=== PATIENT | female | born 1960 | race Hispanic/Latino ===

== ENCOUNTER 2019-04-30 20:16 | Emergency (ER) | payer SELFPAY ==
[2019-04-30 21:16] LABS: Protime INR 1.03
[2019-04-30 21:20] LABS: Absolute Lymphocytes (CBC) 2.7 K/uL (0.7-4.9); Basophils % 0.9 % (0-1.3); Hematocrit 37.9 % (36.0-45.0); Lymphocytes % 30.8 % (15.3-44.8); MPV 9.2 fL (7.6-11.3); RBC Red Blood Cell Count 4.09 M/uL (3.86-4.86)
[2019-04-30 21:40] LABS: ALT/SGPT 35 U/L (12-78); AST/SGOT 18 U/L (15-37); Albumin 3.9 g/dL (3.4-5.0); Alkaline Phosphatase 118 U/L (45-117); BUN Blood Urea Nitrogen 11 mg/dL (7-18); Bicarbonate 26 mmol/L (21-32); Bilirubin Direct 0.1 mg/dL (0-0.2); Bilirubin Total 0.3 mg/dL (0.2-1.0); Glucose Level 125 mg/dL (74-106); NT PRO-BNP 267 pg/mL (<125); Potassium 3.5 mmol/L (3.5-5.1); Protein, Total 6.9 g/dL (6.4-8.2); Sodium Level 143 mmol/L (136-145); Troponin (Emerg Dept Use Only) < 0.02 ng/mL (0.0-0.045)
[2019-04-30] MEDS ORDERED: KETOROLAC 30 MG/ML INJ ONE (21:41)
--- NOTE | 2019-04-30 22:07 | ER ---
Nurse's Notes [facility] Name: Rowan Tom Age: 58 yrs Sex: Female : 1960 Arrival Date: 04/30/2019 Time: 20:36 Bed 6 Private MD: Diagnosis: Pain in thoracic spine;Pain in upper right posterior thoracic ;Cough;Bronchitis, not specified as acute or chronic Presentation: 04/30 20:30 Presenting complaint: Patient states: that she has had cough, congestion with green fc sputum, chest pain and shortness of breath x 2 months. Pain is worse with deep breathing. Has been seen at the [facility] x 4, they ran tests including a Ct and could not figure things out so she was told to come to ER. Also has 2 wounds on her scalp that have been there for 2 years and treated but wont go away. Transition of care: patient was not received from another setting of care. Onset of symptoms was February 2019. Risk Assessment: Do you want to hurt yourself or someone else? Patient reports no desire to harm self or others. Initial Sepsis Screen: Does the patient meet any 2 criteria? No. Patient's initial sepsis screen is negative. Does the patient have a suspected source of infection? No. Patient's initial sepsis screen is negative. Care prior to arrival: None. 20:30 Method Of Arrival: Ambulatory 20:30 Acuity: LAMINE 3 Triage Assessment: 21:45 Respiratory: Reports. bb 21:46 General: Appears in no apparent distress. Respiratory: Onset: The symptoms/episode bb began/occurred 2 months ago, the patient reports symptoms have resolved. Historical: - Allergies: 21:01 Levaquin; fc - Home Meds: 21:01 sertraline 25 mg oral tab 1 tab once daily [Active]; fc - PMHx: 21:01 Depression; UTI - Ecoli; fc - PSHx: 21:01 ; fc - Immunization history:: Last tetanus immunization: unknown, Flu vaccine is not up to date. - Social history:: Smoking status: Patient/guardian denies using tobacco, Patient/guardian denies using alcohol, street drugs. - Ebola Screening: : Patient negative for fever greater than or equal to 101.5 degrees Fahrenheit, and additional compatible Ebola Virus Disease symptoms Patient denies exposure to infectious person Patient denies travel to an Ebola-affected area in the 21 days before illness onset. Screenin:30 Abuse screen: Denies threats or abuse. Nutritional screening: No deficits noted. fc Tuberculosis screening: No symptoms or risk factors identified. Fall Risk None identified. Assessment: 20:50 General: Appears in no apparent distress. Behavior is calm, cooperative. Pain: bb Complains of pain in back Pain currently is 5 out of 10 on a pain scale. Neuro: Level of Consciousness is awake, alert, obeys commands, Oriented to person, place, time, situation. Cardiovascular: Heart tones S1 S2 present Capillary refill < 3 seconds Patient's skin is warm and dry. Pulses are all present. Edema is absent. Rhythm is sinus rhythm. Respiratory: Airway is patent Respiratory effort is even, unlabored, Breath sounds are clear bilaterally. GI: No deficits noted. No signs and/or symptoms were reported involving the gastrointestinal system. Derm: Skin is pink, warm \T\ dry. Musculoskeletal: Circulation, motion, and sensation intact. 21:47 Reassessment: Patient and/or family updated on plan of care and expected duration. Pain bb level reassessed. Patient is alert, oriented x 3, equal unlabored respirations, skin warm/dry/pink. pt awaiting diagnostic results, family at bedside. 22:26 Reassessment: Upon discharge pt states she is feeling nauseous Dr Ko notified pt bb medicated see AUG. 22:39 Reassessment: Patient is alert, oriented x 3, equal unlabored respirations, skin bb warm/dry/pink. pt verbalized understanding of and agrees to plan of care discharge instructions given pt ambulated with steady gait to exit accompanied by family. Vital Signs: 20:30 BP 111 / 68; Pulse 68; Resp 20; Temp 99(O); Pulse Ox 99% on R/A; Weight 75.3 kg (R); fc Height 5 ft. 3 in. (160.02 cm) (R); Pain 5/10; 21:17 BP 103 / 64; Pulse 71; Resp 20; Pulse Ox 96% on R/A; bb 21:47 BP 110 / 60; Pulse 60; Resp 14 S; Pulse Ox 96% on R/A; bb 22:35 BP 108 / 62; Pulse 63; Resp 20 S; Temp 98.6(O); Pulse Ox 98% on R/A; bb 20:30 Body Mass Index 29.41 (75.30 kg, 160.02 cm) ED Course: 20:30 Arm band placed on Patient placed in an exam room, on a stretcher. fc 20:30 Patient has correct armband on for positive identification. Placed in gown. Bed in low fc position. Call light in reach. Side rails up X 1. phototypesetting equipment monitor on. Pulse ox on. NIBP on. 20:30 No provider procedures requiring assistance completed. fc 20:36 Patient arrived in ED. cf2 20:47 Luis Ko MD is Attending Physician. kdr 20:50 Warm blanket given. bb 20:59 Triage completed. fc 21:10 XRAY Chest (1 view) In Process Unspecified. EDMS 21:11 Inserted saline lock: 20 gauge in left wrist, using aseptic technique. Blood collected. jb5 21:13 Treasure Oneal, RN is Primary Nurse. bb 22:40 IV discontinued, intact, bleeding controlled, No redness/swelling at site. Pressure bb dressing applied. Administered Medications: 21:45 Drug: TORadol - Ketorolac 15 mg Route: IVP; Site: left wrist; bb 22:14 Follow up: Response: No adverse reaction; Pain is unchanged, physician notified bb 22:14 Drug: traMADol 50 mg Route: PO; bb 22:41 Follow up: Response: No adverse reaction; RASS: Alert and Calm (0) bb 22:25 Drug: Zofran 4 mg Route: IVP; Site: left wrist; bb 22:41 Follow up: Response: No adverse reaction bb Outcome: 22:06 Discharge ordered by . kdr 22:40 Discharged to home ambulatory, with family. bb 22:40 Condition: stable 22:40 Discharge instructions given to patient, family, Instructed on discharge instructions, follow up and referral plans. medication usage, Demonstrated understanding of instructions, follow-up care, medications, Prescriptions given X 4. 22:42 Patient left the ED. bb Signatures: Dispatcher [employer] EDMS Luis Ko MD MD kdr Chretien, Felicia, RN RN Treasure Oneal, LESVIA RN bb Evelyn Tidwell jb5 Elisa Bunn cf2
--- NOTE | 2019-04-30 22:07 | EDPHYS ---
Physician Documentation [facility] Name: Rowan Tom Age: 58 yrs Sex: Female : 1960 Arrival Date: 04/30/2019 Time: 20:36 Bed 6 Private MD: ED Physician Luis Ko HPI: 04/30 22:24 This 58 yrs old Female presents to ER via Ambulatory with complaints of kdr Breathing Difficulty, Chest Pain. 22:24 The patient has shortness of breath at rest, with light activity. Onset: The kdr symptoms/episode began/occurred gradually, 2 month(s) ago. Duration: The symptoms are continuous, and are steadily getting worse. The patient's shortness of breath is aggravated by coughing, exertion, light activity, is alleviated by nothing. Associated signs and symptoms: Pertinent positives: productive cough, Pertinent negatives: diaphoresis, dizziness, fever, hemoptysis, nausea, numbness in extremities, visual changes, vomiting. Severity of symptoms: At their worst the symptoms were mild in the emergency department the symptoms are unchanged. The patient has experienced similar episodes in the past, chronically, Persists but not appreciably worse. The patient has been recently seen by a physician: Has had extensive w/u at other local facilities. Historical: - Allergies: 21:01 Levaquin; fc - Home Meds: 21:01 sertraline 25 mg oral tab 1 tab once daily [Active]; fc - PMHx: 21:01 Depression; UTI - Ecoli; fc - PSHx: 21:01 ; fc - Immunization history:: Last tetanus immunization: unknown, Flu vaccine is not up to date. - Social history:: Smoking status: Patient/guardian denies using tobacco, Patient/guardian denies using alcohol, street drugs. - Ebola Screening: : Patient negative for fever greater than or equal to 101.5 degrees Fahrenheit, and additional compatible Ebola Virus Disease symptoms Patient denies exposure to infectious person Patient denies travel to an Ebola-affected area in the 21 days before illness onset. ROS: 22:24 Constitutional: Negative for fever, chills, and weight loss, Eyes: Negative for injury, kdr pain, redness, and discharge, ENT: Negative for injury, pain, and discharge, Neck: Negative for injury, pain, and swelling, Abdomen/GI: Negative for abdominal pain, nausea, vomiting, diarrhea, and constipation, Back: Negative for injury and pain, : Negative for injury, bleeding, discharge, and swelling, MS/Extremity: Negative for injury and deformity, Skin: Negative for injury, rash, and discoloration, Neuro: Negative for headache, weakness, numbness, tingling, and seizure activity. Psych: Negative for depression, anxiety, suicide ideation, homicidal ideation, and hallucinations, Allergy/Immunology: Negative for hives, rash, and allergies, Endocrine: Negative for neck swelling, polydipsia, polyuria, polyphagia, and marked weight changes, Hematologic/Lymphatic: Negative for swollen nodes, abnormal bleeding, and unusual bruising. 22:24 Cardiovascular: Positive for chest pain, of the right scapular area and right subscapular area, Negative for edema, orthopnea, palpitations, paroxysmal nocturnal dyspnea. 22:24 Respiratory: Positive for cough, shortness of breath, on exertion. Exam: 22:24 Constitutional: This is a well developed, well nourished patient who is awake, alert, kdr and in no acute distress. Head/Face: Normocephalic, atraumatic. Eyes: Pupils equal round and reactive to light, extra-ocular motions intact. Lids and lashes normal. Conjunctiva and sclera are non-icteric and not injected. Cornea within normal limits. Periorbital areas with no swelling, redness, or edema. Neck: Trachea midline, no thyromegaly or masses palpated, and no cervical lymphadenopathy. Supple, full range of motion without nuchal rigidity, or vertebral point tenderness. No Meningismus. Chest/axilla: Normal chest wall appearance and motion. Nontender with no deformity. No lesions are appreciated. Cardiovascular: Regular rate and rhythm with a normal S1 and S2. No gallops, murmurs, or rubs. Normal PMI, no JVD. No pulse deficits. Respiratory: Lungs have equal breath sounds bilaterally, clear to auscultation and percussion. No rales, rhonchi or wheezes noted. No increased work of breathing, no retractions or nasal flaring. Abdomen/GI: Soft, non-tender, with normal bowel sounds. No distension or tympany. No guarding or rebound. No evidence of tenderness throughout. Back: No spinal tenderness. No costovertebral tenderness. Full range of motion. Skin: Warm, dry with normal turgor. Normal color with no rashes, no lesions, and no evidence of cellulitis. MS/ Extremity: Pulses equal, no cyanosis. Neurovascular intact. Full, normal range of motion. Neuro: Awake and alert, GCS 15, oriented to person, place, time, and situation. Cranial nerves II-XII grossly intact. Motor strength 5/5 in all extremities. Sensory grossly intact. Cerebellar exam normal. Normal gait. Psych: Awake, alert, with orientation to person, place and time. Behavior, mood, and affect are within normal limits. Vital Signs: 20:30 BP 111 / 68; Pulse 68; Resp 20; Temp 99(O); Pulse Ox 99% on R/A; Weight 75.3 kg (R); fc Height 5 ft. 3 in. (160.02 cm) (R); Pain 5/10; 21:17 BP 103 / 64; Pulse 71; Resp 20; Pulse Ox 96% on R/A; bb 21:47 BP 110 / 60; Pulse 60; Resp 14 S; Pulse Ox 96% on R/A; bb 22:35 BP 108 / 62; Pulse 63; Resp 20 S; Temp 98.6(O); Pulse Ox 98% on R/A; bb 20:30 Body Mass Index 29.41 (75.30 kg, 160.02 cm) fc MDM: 22:06 Patient medically screened. kdr 22:24 Data reviewed: vital signs, nurses notes, lab test result(s), radiologic studies. kdr Counseling: I had a detailed discussion with the patient and/or guardian regarding: the historical points, exam findings, and any diagnostic results supporting the discharge/admit diagnosis, lab results, radiology results, the need for outpatient follow up. 04/30 20:48 Order name: Basic Metabolic Panel; Complete Time: 22:03 kdr 04/30 20:48 Order name: CBC with Diff; Complete Time: 21:40 kdr 04/30 20:48 Order name: LFT's; Complete Time: 22:03 kdr 04/30 20:48 Order name: Magnesium; Complete Time: 22:03 kdr 04/30 20:48 Order name: NT PRO-BNP; Complete Time: 22:03 kdr 04/30 20:48 Order name: PT-INR; Complete Time: 21:40 kdr 04/30 20:48 Order name: Troponin (emerg Dept Use Only); Complete Time: 22:03 [facility] 04/30 20:48 Order name: XRAY Chest (1 view) [facility] 04/30 20:48 Order name: EKG; Complete Time: 20:48 [facility] 04/30 20:48 Order name: Cardiac monitoring; Complete Time: 21:18 [facility] 04/30 20:48 Order name: EKG - Nurse/Tech; Complete Time: 21:18 [facility] 04/30 20:48 Order name: IV Saline Lock; Complete Time: 21:18 [facility] 04/30 20:48 Order name: Labs collected and sent; Complete Time: 21:18 [facility] 04/30 20:48 Order name: O2 Per Protocol; Complete Time: 21:18 [facility] 04/30 20:48 Order name: O2 Sat Monitoring; Complete Time: 21:18 kdr Administered Medications: 21:45 Drug: TORadol - Ketorolac 15 mg Route: IVP; Site: left wrist; bb 22:14 Follow up: Response: No adverse reaction; Pain is unchanged, physician notified bb 22:14 Drug: traMADol 50 mg Route: PO; bb 22:41 Follow up: Response: No adverse reaction; RASS: Alert and Calm (0) bb 22:25 Drug: Zofran 4 mg Route: IVP; Site: left wrist; bb 22:41 Follow up: Response: No adverse reaction bb Disposition: 04/30/19 22:06 Discharged to Home. Impression: Pain in thoracic spine, Pain in upper right posterior thoracic , Cough, Bronchitis, not specified as acute or chronic. - Condition is Stable. - Discharge Instructions: Acute Bronchitis, Kyap-op-Ccrs, Back Pain, Adult, [id number], Cough, Adult, [id number]. - Prescriptions for Tramadol 50 mg Oral Tablet - take 1 tablet by ORAL route every 8 hours as needed; 12 tablet. Medrol (Musa) 4 mg Oral Tablets, Dose Pack - take 1 tablet by ORAL route as directed - follow package instructions; 1 packet. Pepcid 20 mg Oral Tablet - take 1 tablet by ORAL route once daily; 20 tablet. Zofran 4 mg Oral Tablet - take 1 tablet by ORAL route every 12 hours As needed; 6 tablet. - Medication Reconciliation Form, Thank You Letter form. - Follow up: Private Physician; When: 2 - 3 days; Reason: If symptoms return, Further diagnostic work-up, Recheck today's complaints, Continuance of care, Re-evaluation by your physician. - Problem is an ongoing problem. - Symptoms have improved. Signatures: Dispatcher [employer] EDMS Luis Ko MD MD [facility] Rowena Saini RN RN fc Treasure Oneal RN RN bb Corrections: (The following items were deleted from the chart) 22:42 22:06 04/30/2019 22:06 Discharged to Home. Impression: Pain in thoracic spine; Pain in bb upper right posterior thoracic ; Cough; Bronchitis, not specified as acute or chronic. Condition is Stable. Forms are Medication Reconciliation Form, Thank You Letter, Antibiotic Education, Prescription Opioid Use. Follow up: Private Physician; When: 2 - 3 days; Reason: If symptoms return, Further diagnostic work-up, Recheck today's complaints, Continuance of care, Re-evaluation by your physician. Problem is an ongoing problem. Symptoms have improved. kdr
[2019-04-30] MEDS ORDERED: TRAMADOL HCL 50 MG TAB ONE (22:12)
[2019-04-30] MEDS ORDERED: ONDANSETRON 4 MG/2 ML VIAL ONE (22:21)
[2019-04-30 22:51] VITALS: BP 108/62; TEMP 98.6; O2SAT 98
--- NOTE | 2019-05-01 07:44 | EKG ---
Test Date: 2019-04-30 Test Time: 20:55:58 Site Auditor: JASON MEASUREMENT RESULTS: Intervals: Rate: 66 MT: 136 QRSD: 80 QT: 480 QTc: 503 [place]: P: -15 MT: 136 QRS: 9 T: 20 INTERPRETIVE STATEMENTS: Normal sinus rhythm Nonspecific ST abnormality Prolonged QT Abnormal ECG No previous ECG available for comparison Electronically Signed On 05-01-19 07:43:11 [employer] STRATEGIST by Markus Arellano
--- NOTE | 2019-05-01 07:58 | RAD REPORT ---
EXAM DESCRIPTION: RAD - Chest Single View - 04/30/2019 9:10 pm CLINICAL HISTORY: Cough and congestion, chest pain, shortness of breath COMPARISON: None. TECHNIQUE: AP portable chest image was obtained 2104 hours . FINDINGS: Lungs are clear. Heart and vasculature are normal. No measurable pleural effusion and no p neumothorax. No acute bony abnormality seen. No acute aortic findings suspected. IMPRESSION: No acute cardiopulmonary process.
== END 2019-04-30 22:42 | disposition home or self-care (01) ==
LOC: ER 20:16
DX: J40 Bronchitis, not specified as acute or chronic (principal); M54.6 Pain in thoracic spine; F32.9 Major depressive disorder, single episode, unspecified; Z88.1 Allergy status to other antibiotic agents
CPT/HCPCS: 36415; 71045; 80048; 80076; 83735; 83880; 84484; 85025; 85610; 93005; 96374; 96375; 99284; J2405